=== PATIENT | female | born 1940 ===

== ENCOUNTER 2025-04-26 08:17 | Emergency (ER) | payer MEDICARE, MEDICAID, SELFPAY ==
--- NOTE | ~2025-04-26 | XR_ITS ---
EXAMINATION: XR CHEST 1 VIEW HISTORY: chest pain COMPARISON: There are no prior studies available for comparison. FINDINGS: A single AP portable view of the chest performed at 9:14 AM is submitted. A left-sided dual-chamber pacemaker is noted with leads in the right atrium and ventricle. The lungs are expanded and clear. There is no pleural effusion, pneumothorax, or pulmonary vascular congestion. The heart is normal in size. There is degenerative disc disease of the spine. XR/XR chest 1V IMPRESSION: Clear lungs. Electronically signed by: Bradley Manzo MD 04/26/2025 09:32 AM EDT
--- NOTE | ~2025-04-26 | CT_ITS ---
EXAMINATION: CT HEAD WITHOUT CONTRAST CLINICAL INFORMATION: Mental status COMPARISON: None available. TECHNIQUE: Contiguous axial imaging was performed from the skull base to vertex without intravenous administration of contrast. This CT examination was performed using dose optimization techniques as appropriate, variously including the following: *Automated exposure control *Adjustment of mA and/or kV according to patient size (this includes techniques or standardized protocols for targeted exams where dose is matched to indication/reason for exam; i.e. extremities or head) *Use of iterative reconstruction technique DLP: 582 FINDINGS: There is no acute intra-axial, extra-axial bleed, masses or midline shift. No acute infarction in evolution. There is mild periventricular hypodensity in both cerebral hemispheres without mass effect. The lateral ventricles are symmetrical in size and configuration without enlargement. The florian to white matter differentiation is maintained normal. Bone windows reveal no calvarial abnormality. No scalp soft tissue abnormality seen. Bilateral paranasal sinuses and mastoid air cells are well-aerated. CT/CT head/brain wo IV con IMPRESSION: No acute intracranial process Electronically signed by: Thierry Padilla MD 04/26/2025 03:41 PM EDT
[2025-04-26 08:25] VITALS: BP 176/88; BP 178/96; PULSE 76; PULSE 84; RESP 16; TEMP 36.6; O2SAT 95; O2SAT 97; BMI 24.2
--- NOTE | 2025-04-26 08:57 | ECG_ITS ---
Test Reason : high bp Blood Pressure : */* mmHG Vent. Rate : 79 BPM Atrial Rate : 79 BPM P-R Int : 172 ms QRS Dur : 118 ms QT Int : 400 ms P-R-T Axes : -7 -46 110 degrees QTcB Int : 458 ms Atrial-sensed ventricular-paced rhythm Abnormal ECG No previous ECGs available Referred By: Basilio Sheppard Electronically Signed By: CHERRIE GONZALEZ MD
--- NOTE | 2025-04-26 08:58 | ED_ITS ---
HPI - General Adult General Chief complaint: General Medical Stated complaint: shacking bp 172/98 from snf Time Seen by Provider: 04/26/25 08:49 Source: EMS Mode of arrival: EMS History of Present Illness HPI narrative: This is 84 years old female resident of [facility] sent for evaluation because elevated blood pressure. Patient has a history of hypertension, constipation, hypercalcemia, metabolic encephalopathy, schizophrenia she is status post pacemaker as well she appeared to be disoriented to time and place. Unable to give a good history Onset (ago): hour(s) (2) Radiation: non-radiation Severity: mild Relieving factors: none Exacerbating factors: none Related Data Allergies Allergy/AdvReac Type Severity Reaction Status Date / Time No Known Allergies Allergy Verified 04/26/25 08:29 Review of Systems 2 Review of Systems: Yes Unobtainable due to mental condition PMFSH Social History Social History Smoked in Last 30 Days: No Use of substances other than those prescribed or required for medical reasons: No Advance Directives: No Advance Directives Information Provided: No Physical Exam ED Exam Exam: No acute distress comfortable in the stretcher Vital Signs: Vital Signs - 24 hr 04/26/25 17:50 Temperature 98.4 F Pulse Rate 94 Respiratory Rate 16 Blood Pressure 165/70 H Pulse Oximetry 95 Oxygen Delivery Method Room Air BMI result Body Mass Index 24.2 Const General: cooperative, comfortable, no acute distress, well developed, alert and awake Nutritional Appearance: average body habitus HENMT Head: Yes normal to inspection General nose exam: Normal external nose present Face and sinus: Yes normal facial exam Neck Neck: Yes normal visual inspection Resp Effort & Inspection: normal respiratory effort Auscultation: clear to auscultation bilaterally Cardio Jugular venous distension: no JVD Rate: regular rate Rhythm: regular rhythm GI Inspection: Yes normal to inspection Palpation (GI): Soft to palpation, not firm, nontender and no guarding Skin General skin exam: no rashes or lesions noted, elasticity normal and turgor normal Lesions: no lesions Rashes: no rashes Trauma: no lacerations or abrasions Neuro Other: No focal disoriented to time and place Course Reevaluation(s) Reevaluation #1: Patient remained stable afebrile she ambulated without any problem in the hallway, I spoke with the nurse of the [facility] she was sent here because she was shaking and blood pressure was elevated. Reevaluation #2: Patient remained stable head CT negative labs normal blood pressure better she can be discharged home we attempted to call the niece and son no answer Time: 16:00 Medical Decision Making Medical Decision Making [facility] Narrative: Patient was sent here because of elevated blood pressure she is unable to give any history we will check blood work electrocardiogram Differential Diagnosis Differential Diagnoses: The differential diagnosis associated with the presentation includes Lab Data [facility] Lab Attestation statement: I reviewed the patient's lab results. 04/26/25 09:13 04/26/25 09:13 Labs: Lab Results 04/26/25 04/26/25 04/26/25 Range/Units 09:13 10:10 10:55 WBC 6.5 (4.8-10.8) X10*3/uL RBC 3.57 L (4.20-5.50) X10*6/uL Hgb 11.3 L (12.0-16.0) g/dl Hct 33.2 L (37.0-47.0) % MCV 93.0 (80.0-98.0) fL MCH 31.7 (27.0-33.0) pg MCHC 34.0 (31.0-35.0) g/dl RDW 12.4 (11.0-16.0) % Plt Count 242 (160-400) X10*3/uL MPV 9.0 L (9.4-12.3) fL Immature Gran % (Auto) 0.3 (0.0-0.4) % Neut % (Auto) 55.1 (45-73) % Lymph % (Auto) 31.2 (20-40) % [place] % (Auto) 8.6 (2-11) % Eos % (Auto) 4.3 H (0-4) % Baso % (Auto) 0.5 (0-2) % Lymph # (Auto) 2.0 (1.2-4.9) X10*3/uL [place] # (Auto) 0.6 (0.1-1.2) X10*3/uL Eos # (Auto) 0.3 (0.0-0.4) X10*3/uL Baso # (Auto) 0.0 (0.0-0.2) X10*3/uL Abs Immat Gran (auto) 0.02 (0.00-0.03) X10*3/uL Absolute Neuts (auto) 3.6 (2.0-8.3) x10*3/uL Absolute Nucleated RBC 0.000 (0.0-0.012) X10*3/uL Nucleated RBC % (auto) 0.0 (0.0-0.2) /100WBC Sodium 143 (135-145) mmol/L Potassium 4.4 (3.3-5.1) mmol/L Chloride 111 H (96-108) mmol/L Carbon Dioxide 26 (22-29) mmol/L Anion Gap 10 L (12-20) BUN 17 H (9-16) mg/dL Creatinine 0.68 (0.5-1.4) mg/dL Estim Creat Clear Calc 48.4 Estimated GFR > 60 Random Glucose 94 (60-115) mg/dL Calcium 10.2 (8.4-10.2) mg/dL Total Bilirubin 0.5 (0.0-1.0) mg/dL AST 23 (5-31) U/L ALT 19 (0-31) U/L Alkaline Phosphatase 57 (39-117) U/L Troponin I High Sens < 2.7 < 2.7 (<3.5-17.0) ng/L Total Protein 5.9 L (6.5-8.0) g/dL Albumin 3.7 (3.5-5.0) g/dL Urine Color Yellow Urine Appearance Clear Urine pH 8.5 (5.0-9.0) Ur Specific [place] 1.010 (1.005-1.025) Urine Protein Negative (Neg-Trace) mg/dL Urine Glucose (UA) Negative (Negative) mg/dL Urine Ketones Negative (Negative) mg/dL Urine Blood Negative (Negative) Urine Nitrite Negative (Negative) Ur Leukocyte Esterase Trace H (Negative) Urine RBC 0-2 (0-2) /HPF Urine WBC 0-5 (0-5) /HPF Ur Squamous Epith Cells 0-2 (0-2) /HPF Urine Bacteria None Seen (None Seen) Hyaline Casts 0-2 (0-2) /LPF Independent Interpretation I performed an independent interpretation of an: EKG and CT Scan (No acute disease) Interpretation: Paced rhythm rate 79 Radiology Impression Discussion of test interpretation with radiology: I have reviewed the radiologist's reading. Radiologist Impression: This CT examination was performed using dose optimization techniques as appropriate, variously including the following: *Automated exposure control *Adjustment of mA and/or kV according to patient size (this includes techniques or standardized protocols for targeted exams where dose is matched to indication/reason for exam; i.e. extremities or head) *Use of iterative reconstruction technique DLP: 582 FINDINGS: There is no acute intra-axial, extra-axial bleed, masses or midline shift. No acute infarction in evolution. There is mild periventricular hypodensity in both cerebral hemispheres without mass effect. The lateral ventricles are symmetrical in size and configuration without enlargement. The florian to white matter differentiation is maintained normal. Bone windows reveal no calvarial abnormality. No scalp soft tissue abnormality seen. Bilateral paranasal sinuses and mastoid air cells are well-aerated. CT/CT head/brain wo IV con IMPRESSION: No acute intracranial process Electronically signed by: Thierry Padilla MD 04/26/2025 03:41 PM EDT Discharge Plan Discharge Clinical Impression: Hypertension Patient Disposition: Home, Self-Care Instructions: Hypertension (ED) Additional Instructions: Follow-up with your primary care physician return if worse Referrals: Sharmila Barnhart NP [Primary Care Provider, Internal Medicine] - 04/28/25 Interventions: ED Discharge Assessment Last Done: 04/26/25 17:50 Discharge Date/Time: 04/26/25 17:59 Print Language: [place]
[2025-04-26 09:18] LABS: MANUAL DIFF FLAG NO
[2025-04-26 09:20] LABS: Hematocrit 33.2 % (37.0-47.0); Hemoglobin 11.3 g/dl (12.0-16.0); Imm Gran Abs Auto 0.02 X10*3/uL (0.00-0.03); Imm Gran Pct Auto 0.3 % (0.0-0.4); Lymphocytes Absolute Auto 2.0 X10*3/uL (1.2-4.9); Mean Corpuscular HGB Conc 34.0 g/dl (31.0-35.0); Mean Corpuscular Hemoglobin 31.7 pg (27.0-33.0); Mean Corpuscular Volume 93.0 fL (80.0-98.0); NRBC Abs Auto 0.000 X10*3/uL (0.0-0.012); NRBC Pct Auto 0.0 /100WBC (0.0-0.2); Platelet Count 242 X10*3/uL (160-400); Red Blood Count 3.57 X10*6/uL (4.20-5.50); White Blood Count 6.5 X10*3/uL (4.8-10.8)
[2025-04-26 09:48] LABS: Alanine Aminotransferase 19 U/L (0-31); Albumin Level 3.7 g/dL (3.5-5.0); Alkaline Phosphatase 57 U/L (39-117); Anion Gap 10 (12-20); Aspartate Amino Transferase 23 U/L (5-31); Blood Urea Nitrogen 17 mg/dL (9-16); Calcium 10.2 mg/dL (8.4-10.2); Carbon Dioxide 26 mmol/L (22-29); Chloride 111 mmol/L (96-108); Creatinine Clr Calc Pharmacy 48.4; Estimated Glomerular Filt Rate > 60; Potassium 4.4 mmol/L (3.3-5.1); Sodium 143 mmol/L (135-145); Total Protein 5.9 g/dL (6.5-8.0)
[2025-04-26 10:01] LABS: Troponin-I High Sensitivity < 2.7 ng/L (<3.5-17.0)
[2025-04-26 10:09] VITALS: BP 154/64; PULSE 79; RESP 16
[2025-04-26 10:17] LABS: Appearance Urine Clear; Glucose Urine UA Negative (Negative); PH 8.5 (5.0-9.0); Specific Gravity - Urine 1.010 (1.005-1.025); UMIC TRIGGER UACC YES
[2025-04-26 11:32] LABS: Troponin-I High Sensitivity < 2.7 ng/L (<3.5-17.0)
[2025-04-26 13:18] VITALS: BP 184/65; PULSE 74; RESP 15; O2SAT 97
--- NOTE | 2025-04-26 15:57 | PC.NURSE ---
Attempted to call family to update on plan to send back to facility [facility], no anwers and attempted niece and son
[2025-04-26 15:59] VITALS: BP 134/71; PULSE 63; RESP 16; O2SAT 97
[2025-04-26 17:50] VITALS: BP 165/70; PULSE 94; RESP 16; TEMP 36.9; O2SAT 95
== END 2025-04-26 17:59 | disposition home or self-care (01) ==
PROVIDERS: Emergency Provider Emergency Medicine; PCP Nurse Practitioner Family
DX: I10 Essential (primary) hypertension (principal); R07.9 Chest pain, unspecified; Z95.0 Presence of cardiac pacemaker
CPT/HCPCS: 36415; 70450; 71045; 80053; 81001; 84484; 85025; 93005; 99284

== ENCOUNTER → 2025-04-26 08:57 | Outpatient (BNV) | payer SELFPAY | PROVIDERS: Emergency Provider Emergency Medicine; Visit Provider Internal Medicine Cardiovascular Disease | DX: R94.31 Abnormal electrocardiogram [ECG] [EKG] (principal); Z95.0 Presence of cardiac pacemaker | CPT/HCPCS: 93010 ==

== ENCOUNTER → 2025-04-26 08:57 | Outpatient (BNV) | payer MEDICARE, SELFPAY | PROVIDERS: Emergency Provider Emergency Medicine; Visit Provider Radiology Diagnostic Radiology | DX: R41.82 Altered mental status, unspecified (principal); R07.9 Chest pain, unspecified | CPT/HCPCS: 70450; 71045 ==